=== PATIENT | male | born 1965 | race Asian ===

== ENCOUNTER 2018-05-17 06:36 | Day surgery (SDC) | payer MEDICAID ==
[2018-05-13 10:03] LABS: BASOPHILS % (AUTO) 0.2 % (0-1); EOSINOPHILS # (AUTO) 0.2 X10'3 (0-0.9); EOSINOPHILS % (AUTO) 2.8 % (0-6); LYMPHOCYTES # (AUTO) 1.7 X10'3 (1.1-4.8); LYMPHOCYTES % (AUTO) 22.4 % (21-51); MEAN CORPUSCULAR HEMOGLOBIN 30.7 PG (27.0-31.0); MEAN CORPUSCULAR HGB CONC 34.1 % (33.0-36.5); MEAN PLATELET VOLUME 8.6 FL (7.4-10.4); MONOCYTES # (AUTO) 0.5 X10'3 (0-0.9); NEUTROPHILS # (AUTO) 5.2 X10'3 (1.8-7.7); NEUTROPHILS % (AUTO) 67.6 % (42-75); PRE OP HEMATOCRIT 38.9 % (42.0-52.0); PRE OP HEMOGLOBIN 13.3 g/dL (14.0-17.9); PRE OP PLATELET COUNT 209 X10'3 (140-440); RED BLOOD COUNT 4.32 X10'6 (4.70-6.10); RED CELL DISTRIBUTION WIDTH 14.2 % (11.5-14.5)
[2018-05-13 10:07] LABS: CLARITY,URINE CLEAR (Clear); COLOR,URINE YELLOW (Yellow); GLUCOSE, URINE NEGATIVE (Neg); KETONES,URINE NEGATIVE (Neg); LEUKOCYTE ESTERASE ,URINE NEGATIVE (Neg); NITRITES, URINE NEGATIVE (Neg); OCCULT BLOOD,URINE NEGATIVE (Neg); PROTEIN,URINE NEGATIVE (Neg); UROBILINOGEN,URINE 0.2 E.U/dL (0.2-1.0)
[2018-05-13 10:08] LABS: UA COLLECTION TYPE CLN CATCH MIDSTREAM
[2018-05-13 10:17] LABS: ALBUMIN 3.2 G/DL (3.4-5.0); ALBUMIN/GLOBULIN RATIO 0.8 (1.1-1.5); ALKALINE PHOSPHATASE 89 IU/L (46-116); BLOOD UREA NITROGEN 16 MG/DL (7-18); BUN/CREATININE RATIO 13.4 (5.4-32.0); CALCIUM 8.8 MG/DL (8.5-10.1); CHLORIDE 107 MMOL/L (99-107); CREATININE 1.19 MG/DL (0.60-1.10); PRE OP ALT 15 U/L (30-65); PRE OP ANION GAP 6 (8-16); PRE OP AST 22 U/L (10-37); PRE OP BILIRUB, TOTAL 0.9 MG/DL (0.0-1.0); PRE OP GLUCOSE 93 MG/DL (70-104); PRE OP POTASSIUM 4.5 MMOL/L (3.4-5.1); PRE OP SODIUM 140 MMOL/L (135-145); TOTAL CARBON DIOXIDE 26.9 MMOL/L (24-32); TOTAL PROTEIN 7.4 G/DL (6.4-8.2); eGFR 64 ML/MIN
[~2018-05-17] VITALS: Ht 162.6 cm; Wt 63.9 kg
[2018-05-17] VITALS (9 sets, daily range): BP systolic 119–131; BP diastolic 76–86
[~2018-05-17 06:36] MED LIST: ACET-2119 PO; ALBU18HF2 INH; ATOR40TA71 PO; COLC0.6T69 PO; Cefazolin 2GM/50ML dext iso,osmotic IVPB IV ONE; DOCU-148 PO; HYDR25TA4 PO; IBUP-1986 PO; LISI-600 PO; MECL12.584 PO; MONT10TA21 PO; OMEP40CA37 PO; PARO40TA4 PO; albuterol 2.5 MG/3 ML nebule NEB ONE; famotidine 20mg tablet PO ONE; ringers solution, lacted 1,000 ML IV SCH
[2018-05-17] MEDS ORDERED: LIDOcaine 1% (10mg/ml) 2ml vial ONE (07:36)
[2018-05-17] MEDS ORDERED: morphine 4 MG/ML inj SYRINge IV PRN ×2 (08:35)
[2018-05-17] MEDS ORDERED: fentaNYL/PF 50MCG/1 ML 2ML syringe IV PRN ×2 (08:35)
[2018-05-17] MEDS ORDERED: labetalol 20mg/4ml (5mg/ml) syringe IV PRN (08:35)
[2018-05-17] MEDS ORDERED: ondansetron/PF 4mg/2ml inj IV PRN (08:35)
[2018-05-17] MEDS ORDERED: ringers solution, lacted 1,000 ML IV SCH (08:35)
[2018-05-17] MEDS ORDERED: hydrALAZINE 20mg/ml inj. IV PRN (08:35)
[2018-05-17] MEDS ORDERED: LIDOcaine 1% 30ml preserv. free vial ONE (10:18)
[2018-05-17] MEDS ORDERED: BUPIVAcaine/PF 2.5mg/ml (0.25%) 10ml vial ONE (10:18)
[2018-05-17] MEDS ORDERED: midazolam 2 mg/2 ml injection ONE ×2 (10:44→12:01)
[2018-05-17] MEDS ORDERED: fentaNYL/PF 50MCG/1 ML 2ML syringe ONE ×2 (10:44→12:01)
[2018-05-17] MEDS ORDERED: LIDOcaine 2% (20mg/ml) 5ml vial ONE (11:52)
[2018-05-17] MEDS ORDERED: rocuronium 10mg/ml inj IV ONE (11:52)
[2018-05-17] MEDS ORDERED: propofol inj 20 ML IV ONE (12:03)
[2018-05-17] MEDS ORDERED: glycopyrrolate 0.2mg/ml inj ONE (12:04)
[2018-05-17] MEDS ORDERED: ondansetron/PF 4mg/2ml inj ONE (12:04)
[2018-05-17] MEDS ORDERED: neostigmine methylsulfate 1 MG/ML 10ml vial ONE (12:04)
== END 2018-05-17 12:25 | disposition home or self-care (01) ==
LOC: PAS 06:36
PROVIDERS: ATTEND Surgery
DX: D17.1 Benign lipomatous neoplasm of skin and subcutaneous tissue of trunk (principal); J45.998 Other asthma; I10 Essential (primary) hypertension; E78.00 Pure hypercholesterolemia, unspecified; K21.9 Gastro-esophageal reflux disease without esophagitis; F32.9 Major depressive disorder, single episode, unspecified; Z72.89 Other problems related to lifestyle; Z87.891 Personal history of nicotine dependence; Z79.891 Long term (current) use of opiate analgesic; Z79.1 Long term (current) use of non-steroidal anti-inflammatories (NSAID); Z90.49 Acquired absence of other specified parts of digestive tract; Z98.890 Other specified postprocedural states; Z79.899 Other long term (current) drug therapy
CPT/HCPCS: 21931; 36415; 80053; 81003; 85025; 93005; A6449; J0690; J2250; J3010; J3490; J7120; A7000; J2001; J2405; J2704; J2710

== ENCOUNTER 2019-04-14 12:44 | Emergency (ER) | payer MEDICAID ==
[~2019-04-14] VITALS: Ht 162.6 cm; Wt 63.8 kg
[~2019-04-14 12:44] MED LIST changes: -Cefazolin 2GM/50ML dext iso,osmotic IVPB IV ONE; +OMEP40CA13 PO; -OMEP40CA37 PO; -albuterol 2.5 MG/3 ML nebule NEB ONE; -famotidine 20mg tablet PO ONE; -ringers solution, lacted 1,000 ML IV SCH
[2019-04-14 12:51] VITALS: BP 123/82
== END 2019-04-14 13:54 | disposition home or self-care (01) ==
LOC: ER 12:45
DX: K12.0 Recurrent oral aphthae (principal); I10 Essential (primary) hypertension; J45.909 Unspecified asthma, uncomplicated; K21.9 Gastro-esophageal reflux disease without esophagitis; F32.9 Major depressive disorder, single episode, unspecified; F20.9 Schizophrenia, unspecified; Z79.899 Other long term (current) drug therapy; Z90.49 Acquired absence of other specified parts of digestive tract
CPT/HCPCS: 99281

== ENCOUNTER 2019-04-17 19:34 | Emergency (ER) | payer MEDICAID ==
[~2019-04-17] VITALS: Ht 162.6 cm; Wt 72.0 kg
[2019-04-17 19:38] VITALS: BP 120/66
[2019-04-17] MEDS ORDERED: penicillin G benzathine 1.2 million unit/2ml syringe IM ONE (22:05)
[2019-04-17] MEDS ORDERED: ACYC-202 PO (22:12)
[2019-04-19 05:17] LABS: RPR Non Reactive (Non Reactive)
== END 2019-04-17 22:39 | disposition home or self-care (01) ==
LOC: ER 19:36
DX: A64 Unspecified sexually transmitted disease (principal); M25.572 Pain in left ankle and joints of left foot; I10 Essential (primary) hypertension; J45.909 Unspecified asthma, uncomplicated; K21.9 Gastro-esophageal reflux disease without esophagitis; Z90.49 Acquired absence of other specified parts of digestive tract; Z79.899 Other long term (current) drug therapy
CPT/HCPCS: 36415; 86592; 96372; 99283; J0561

== ENCOUNTER 2023-12-23 09:18 | Outpatient (CLI) | payer MEDICAID ==
[~2023-12-23 09:18] MED LIST changes: -COLC0.6T69 PO; +COLC0.6T72 PO; -LISI-600 PO; +LISI20TA28 PO; +MECL-231 PO; -MECL12.584 PO; +MONT-47 PO; -MONT10TA21 PO; -OMEP40CA13 PO; +OMEP40CA21 PO
== END 2023-12-23 23:59 | disposition home or self-care (01) ==
LOC: RAD 09:18
PROVIDERS: ATTEND Nurse Practitioner Psychiatric/Mental Health
DX: R00.1 Bradycardia, unspecified (principal); Z79.899 Other long term (current) drug therapy
CPT/HCPCS: 93005

== ENCOUNTER 2024-01-26 14:10 | Outpatient (CLI) | payer MEDICAID | END 2024-01-26 23:59 | disposition home or self-care (01) | LOC: RAD 14:10 | PROVIDERS: ATTEND Nurse Practitioner Family | DX: R55 Syncope and collapse (principal) | CPT/HCPCS: 70450 ==